=== PATIENT | female | born 1995 | race Caucasian/White ===

== ENCOUNTER 2016-05-27 09:10 | Emergency (ER) | payer BC ==
[2016-05-27 09:24] VITALS: BP 131/80
--- NOTE | 2016-05-27 10:14 | UC ---
Complaint Female HPI - HPI Summary HPI Summary: unsure if she has a tampon in her vagina or not--may have came out last night when having a bowel movement - History Of Current Complaint Chief Complaint: UCGU Stated Complaint: PERSONAL Time Seen by Provider: 05/27/16 10:03 Hx Obtained From: Patient Hx Last Menstrual Period: 05/24/16 ?: No Onset/Duration: Sudden Onset, Lasting Days - 1 Timing: Constant Severity Currently: None Pain Intensity: 0 Aggravating Factor(s): Nothing Alleviating Factor(s): Nothing Associated Signs And Symptoms: Positive: Retained Foregin Body (Specify) - possible tampon - Allergies/Home Medications Allergies/Adverse Reactions: Allergies Allergy/AdvReac Type Severity Reaction Status Date / Time No Known Allergies Allergy Verified 05/27/16 09:23 PMH/Surg Hx/FS Hx/Imm Hx Previously Healthy: No Respiratory History Of: Reports: Asthma - Surgical History Surgical History: Yes Surgery Procedure, Year, and Place: EAR TUBES - Family History Known Family History: Positive: Hypertension Negative: Cardiac Disease, Diabetes - Social History Occupation: Employed Part-time, Student Lives: With Family Alcohol Use: Rare Substance Use Type: None Smoking Status (MU): Never Smoked Tobacco Review of Systems Constitutional: Negative Skin: Negative Eyes: Negative ENT: Negative Respiratory: Negative Cardiovascular: Negative Gastrointestinal: Negative Genitourinary: Negative Motor: Negative Neurovascular: Negative Musculoskeletal: Negative Neurological: Negative Psychological: Negative All Other Systems Reviewed And Are Negative: Yes Physical Exam Triage Information Reviewed: Yes Appearance: Well-Appearing, No Pain Distress, Well-Nourished Vital Signs: Initial Vital Signs Temp 98.0 F 05/27/16 09:20 Pulse 87 05/27/16 09:20 Resp 16 05/27/16 09:20 BP 131/80 05/27/16 09:20 Pulse Ox 100 05/27/16 09:20 Vital Signs Reviewed: Yes Eye Exam: Normal Eyes: Positive: Conjunctiva Clear ENT Exam: Normal ENT: Positive: Normal ENT inspection, Hearing grossly normal, Tonsillar swelling , Tonsillar exudate. Negative: Nasal congestion, Nasal drainage, Trismus, Muffled/hoarse voice Neck exam: Normal Neck: Positive: Supple, Nontender, No Lymphadenopathy Respiratory Exam: Normal Cardiovascular Exam: Normal Cardiovascular: Positive: RRR, Pulses Normal, Brisk Capillary Refill Abdominal Exam: Normal Abdomen Description: Positive: Nontender, Soft Musculoskeletal Exam: Normal Musculoskeletal: Positive: Strength Intact, ROM Intact, No Edema Neurological Exam: Normal Neurological: Positive: Alert, Muscle Tone Normal Psychological Exam: Normal Psychological: Positive: Normal Response To Family, Age Appropriate Behavior Skin Exam: Normal Re-Evaluation - Re-Evaluation First Eval Change: Improved - tolerated pelvic exam well, no tampon noted Complaint Female Dx - Course Course Of Treatment: no change in care---follow with pcp, [facility], if needed - Differential Dx/Diagnosis Differential Diagnosis/HQI/PQRI: Pelvic Inflammatory Disease, Retained Foreign Body Provider Diagnoses: Possible retained tampon Discharge - Discharge Plan Condition: Stable Disposition: HOME Forms: *School Release Referrals: [facility] [place] [facility] [Outside] - If Needed No Primary Care Phys,NOPCP [Primary Care Provider] - Additional Instructions: [facility] in [facility] and [facility] in [facility] is another resource available for you HEALTH CONSULTANT. Health--
== END 2016-05-27 10:36 | disposition home or self-care (01) ==
LOC: UCCORT 09:10
DX: N89.8 Other specified noninflammatory disorders of vagina (principal)
CPT/HCPCS: 99211; G0463

== ENCOUNTER 2016-07-06 15:50 | Emergency (ER) | payer BC ==
[2016-07-06 16:35] VITALS: BP 122/81
[2016-07-06] MEDS ORDERED: SUMAtriptan SQ* 6 MG/0.5 ML VIAL SUBCUT ONE (16:54)
--- NOTE | 2016-07-06 17:00 | UC ---
Headache HPI - HPI Summary HPI Summary: Patient has frequent migraines. She started to have one when she woke up this morning. it is centered over the right eye and radiates to the right gnosticist. right eye blurriness noted. Nausea, has been vomiting. denies any weakness in extremities, gait is steady, dizzy when she goes from standing to laying down, but disappears after a few seconds. Patient states she gets them every couple weeks. - History Of Current Complaint Chief Complaint: UCHeadache Stated Complaint: MIGRAINE Time Seen by Provider: 07/06/16 16:48 Hx Obtained From: Patient Hx Last Menstrual Period: 2.5 weeks ago ?: No Onset/Duration: Sudden Onset, Lasting Hours Onset Of Symptoms: Sudden Initially Headache Was: Severe Currently Pain Is: Severe Timing: Constant Character: Migraine Location of Headache: Temporal Allevating Factors: Nothing Associated Signs And Symptoms: Positive: Dizziness, Nausea, Vomiting - Allergies/Home Medications Allergies/Adverse Reactions: Allergies Allergy/AdvReac Type Severity Reaction Status Date / Time pollen Allergy Eyes Uncoded 07/06/16 16:35 Itchy/Swollen/Red/Watery Home Medications: Home Medications [id number]-[id number] [Excedrin Migraine 250-250-65 mg] 2 tab PO ONCE PRN 07/06/16 [History Confirmed 07/06/16] PMH/Surg Hx/FS Hx/Imm Hx Respiratory History Of: Reports: Asthma - Surgical History Surgical History: Yes Surgery Procedure, Year, and Place: EAR TUBES - Family History Known Family History: Positive: Hypertension Negative: Cardiac Disease, Diabetes - Social History Alcohol Use: Rare Substance Use Type: None Smoking Status (MU): Never Smoked Tobacco Review of Systems Constitutional: Negative Skin: Negative Eyes: Blurred Vision - in right eye ENT: Negative Respiratory: Negative Cardiovascular: Negative Gastrointestinal: Vomiting Genitourinary: Negative Motor: Negative Neurovascular: Negative Musculoskeletal: Negative Neurological: Headache Psychological: Negative All Other Systems Reviewed And Are Negative: Yes Physical Exam Triage Information Reviewed: Yes Appearance: Well-Nourished, Ill-Appearing, Pain Distress Vital Signs: Initial Vital Signs Temp 98.8 F 07/06/16 16:29 Pulse 93 07/06/16 16:29 Resp 20 07/06/16 16:29 BP 122/81 07/06/16 16:29 Pulse Ox 100 07/06/16 16:29 Vital Signs Reviewed: Yes Eye Exam: Normal Eyes: Positive: Conjunctiva Clear ENT Exam: Normal ENT: Positive: Normal ENT inspection, Hearing grossly normal, Pharynx normal, TMs normal Dental Exam: Normal Neck exam: Normal Neck: Positive: Supple, Nontender, No Lymphadenopathy Respiratory Exam: Normal Respiratory: Positive: Chest non-tender, Lungs clear, Normal breath sounds Cardiovascular Exam: Normal Cardiovascular: Positive: RRR, No Murmur, Pulses Normal Abdominal Exam: Normal Abdomen Description: Positive: Nontender, No Organomegaly, Soft, Distended - neg , Guarding - neg Bowel Sounds: Positive: Present Musculoskeletal Exam: Normal Musculoskeletal: Positive: Strength Intact, ROM Intact, No Edema Neurological: Positive: Alert, Muscle Tone Normal, Other: - PERRLA, EOMI, Paper Finisher strength is equal and gait is steady Psychological Exam: Normal Skin Exam: Normal Headache Course/Dx - Course Course Of Treatment: hx obtained, exam performed, meds reviewed, sumatriptan given SQ with good results. prescribed compazine and recommend rest and fluids, follow up with PCP, neuro referral given. - Differential Dx/Diagnosis Differential Diagnosis/HQI/PQRI: Migraine, Temporal Arteritis, Tension Headache Provider Diagnoses: migraine. nausea Discharge - Discharge Plan Condition: Stable Disposition: HOME Patient Education Materials: Migraine Headache (ED) Referrals: No Primary Care Phys,NOPCP [Primary Care Provider] - Viktoria Gallegos MD [Medical Doctor] - Additional Instructions: 1. take the compazine as prescribed. 2. get plenty of rest and fluids today 3. Follow up with PCP and neurology due to the frequency of your headaches.
== END 2016-07-06 17:56 | disposition home or self-care (01) ==
LOC: UCCORT 15:50
DX: G43.909 Migraine, unspecified, not intractable, without status migrainosus (principal); R11.0 Nausea; J45.909 Unspecified asthma, uncomplicated
CPT/HCPCS: 96372; 99212; G0463; J3030

== ENCOUNTER 2018-01-26 21:12 | Emergency (ER) | payer BC ==
--- NOTE | 2018-01-26 21:41 | UC ---
UC General HPI - HPI Summary HPI Summary: STATES ON AN ANTIBIOTIC FOR A SINUS INFECTION. NOW HAS WHITE VAGINAL DISCHARGE WITH PAIN. SELF TX WITH A DIFLUCAN WITH NO RELIEF. - History of Current Complaint Stated Complaint: PERSONAL Time Seen by Provider: 01/26/18 21:31 Hx Obtained From: Patient Hx Last Menstrual Period: 2.5 weeks ago Onset/Duration: Gradual Onset Timing: Constant Associated Signs & Symptoms: Negative: Abdominal Pain, Fever - Allergy/Home Medications Allergies/Adverse Reactions: Allergies Allergy/AdvReac Type Severity Reaction Status Date / Time pollen Allergy Eyes Uncoded 07/06/16 16:35 Itchy/Swollen/Red/Watery Home Medications: Home Medications Amoxicillin/Clavulanate TAB* [Augmentin TAB 875*] 875 mg PO BID 01/26/18 [ History Confirmed 01/26/18] Aspirin/Acetaminophen/Caffeine [Excedrin Migraine Caplet] 2 each PO SEE INSTRUCTIONS PRN 01/26/18 [History Confirmed 01/26/18] Fluconazole 100 MG TAB* [Diflucan 100 MG TAB*] 100 mg PO DAILY 01/26/18 [ History Confirmed 01/26/18] PMH/Surg Hx/FS Hx/Imm Hx Neurological History: Migraine - Surgical History Surgical History: Yes Surgery Procedure, Year, and Place: EAR TUBES - Family History Known Family History: Positive: Hypertension Negative: Cardiac Disease, Diabetes - Social History Alcohol Use: Rare Substance Use Type: None Smoking Status (MU): Never Smoked Tobacco Review of Systems Constitutional: Negative Skin: Negative Eyes: Negative ENT: Negative Respiratory: Negative Cardiovascular: Negative Gastrointestinal: Negative Genitourinary: Vaginal/Penile Burning, Vaginal/Penile Discharge Motor: Negative Neurovascular: Negative Musculoskeletal: Negative Neurological: Negative Psychological: Negative Is Patient Immunocompromised?: No All Other Systems Reviewed And Are Negative: Yes Physical Exam Triage Information Reviewed: Yes Appearance: Well-Appearing Vital Signs Reviewed: Yes Eyes: Positive: Conjunctiva Clear ENT: Positive: Normal ENT inspection Neck: Positive: Supple, Nontender, No Lymphadenopathy Respiratory: Positive: Lungs clear, Normal breath sounds Cardiovascular: Positive: RRR, No Murmur Abdomen Description: Positive: Nontender, No Organomegaly, Soft Bowel Sounds: Positive: Present Pelvic Exam: Positive: External Exam Normal, No Cerv. Motion Tender, Discharge - THICK WHITE. Negative: Active Bleeding, Blood, Cervicitis Musculoskeletal: Positive: ROM Intact Neurological: Positive: Alert Psychological: Positive: Age Appropriate Behavior Skin Exam: Normal Diagnostics - Laboratory Diagnostic Studies Completed/Ordered: URINE HCG=NEG Course/Dx - Differential Dx - Multi-Symptom Provider Diagnoses: YEAST VAGINITIS Discharge - Sign-Out/Discharge Documenting (check all that apply): Patient Departure All imaging exams completed and their final reports reviewed: No Studies - Discharge Plan Condition: Stable Disposition: HOME Patient Education Materials: Vaginitis (ED) Additional Instructions: FOLLOW UP WITH AMISH HARPER -YOUR PRIMARY CARE IN 5-7 DAYS FOR A RECHECK. DIAGNOSIS: YEAST VAGINITIS YOU MAY USE AN OVER THE COUNTER NYSTATIN OR CLORTRIMAZOLE TO TREAT EXTERNAL IRRITATION WELL - Billing Disposition and Condition Condition: STABLE Disposition: Home
[2018-01-26 21:46] VITALS: BP 105/58
[2018-01-26] MEDS ORDERED: Fluconazole 100 MG TAB* TAB PO ONE (21:49)
== END 2018-01-26 22:02 | disposition home or self-care (01) ==
LOC: UCCORT 21:12
DX: N76.0 Acute vaginitis (principal); Z79.82 Long term (current) use of aspirin; J30.1 Allergic rhinitis due to pollen; Z79.2 Long term (current) use of antibiotics
CPT/HCPCS: 84702; 87480; 87491; 87510; 87591; 87661; 99212; A9270-GY; G0463